=== PATIENT | male | born 1970 | race Caucasian/White ===

== ENCOUNTER → 2019-05-17 13:20 | Outpatient (CLI) | payer MEDICARE, SELFPAY ==
[2019-05-17 14:33] LABS: EXAGEN MAILED SPECIMEN
[2019-05-17 16:18] LABS: Absolute Lymphocyte Count 1.45 X10^3/uL (0.83-4.51); Absolute Neutrophil Count 6.1 X10^3/uL (2.0-7.7); Basophil# 0.02 X10^3/uL; Basophil% 0.2 % (0-1); Eosinophil# 0.23 X10^3/uL; Eosinophils% 2.7 % (0-5); Hematocrit 47.4 % (40-54); Hemoglobin 16.8 g/dL (13.0-16.5); Lymphocyte # 1.45 X10^3/ul (4.0); Lymphocyte % 16.9 % (19-41); Mean Corp Hgb Conc 35.4 g/dL (32-36); Mean Corpuscular Hgb 29.1 pg (27.0-32.0); Mean Corpuscular Volume 82.1 fL (80-94); Mean Platelet Vol. 10.5 fl (6.2-12.0); Monocyte# 0.78 X10^3/uL; Monocyte% 9.1 % (0-10); NRBC Flagged by Analyzer 0 % (0-5); Neutrophil # 6.07 X10^3/uL (2.7-7.7); Neutrophil % 70.5 % (47-70); Platelet Count 287 K/mm3 (150-450); RBC Distribution Width CV 13.2 % (11.6-14.6); RBC Distribution Width SD 39.1 fl (35.1-43.9); Red Blood Count 5.77 M/mm3 (4.6-6.2); White Blood Count 8.6 K/mm3 (4.4-11.0)
[2019-05-17 16:23] LABS: Erythrocyte Sedimentation Rate < 1 mm/hr (0-20)
[2019-05-17 16:30] LABS: ALB/GLOB Ratio 1.3 RATIO (0.9-2.4); AST(SGOT) 20 U/L (15-37); Alanine Aminotransfer ALT/SGPT 41 U/L (16-61); Albumin, Serum 4.4 g/dL (3.2-5.0); Alkaline Phosphatase 97 U/L (45-117); Anion Gap 5 (5-15); BUN 15 mg/dL (7-18); CRP < 2.90 mg/L (0.0-3.0); Calcium,Total 8.9 mg/dL (8.5-10.1); Chloride 103 mmol/L (98-107); EST Glomerular Filtration Rate 84 mL/min (>60); Est Glom Filt Rate - Afr Amer 102 mL/min (>60); Globulin 3.5 g/dL (2.2-4.2); Glucose 78 mg/dL (74-106); Protein, Total 7.9 g/dL (6.4-8.2); Protein, Urine (Random) 13.4 mg/dL (<11.9); Protein:Creat Ratio 74 mg/g CRE (0-200); Sodium Level 138 mmol/L (136-145)
[2019-05-17 16:59] LABS: Color, Urine Yellow (Yellow); Glucose, Dipstick Normal (Normal); Ketone-Dipstick 5 mg/dl (Negative); Leukocyte Esterase-Dipstick Negative /ul (Negative); Nitrite-Dipstick Negative (Negative); Occult Blood-Urine Negative /ul (Negative); Protein-Dipstick Negative (Negative); Urine Bilirubin Dipstick Negative (Negative); Urine Clarity Clear (Clear); Urine Urobilinogen Normal (Normal)
[2019-05-18 08:19] LABS: Hepatitis B Surface Antibody Non-Reactive; Hepatitis B Surface Antigen Non-Reactive (Nonreactive); Hepatitis C Antibody Non-Reactive (Nonreactive)
[2019-05-19 13:40] LABS: Hepatitis B Core AB IgM Negative (Negative)
== END ==
PROVIDERS: Family Provider Family Medicine; PCP Family Medicine; Referring Provider Internal Medicine Rheumatology; Visit Provider Internal Medicine Rheumatology
DX: M06.4 Inflammatory polyarthropathy (principal); K90.0 Celiac disease; K58.9 Irritable bowel syndrome, unspecified; K21.9 Gastro-esophageal reflux disease without esophagitis; I34.1 Nonrheumatic mitral (valve) prolapse; F41.9 Anxiety disorder, unspecified; F32.9 Major depressive disorder, single episode, unspecified; R76.8 Other specified abnormal immunological findings in serum
CPT/HCPCS: 36415; 80053; 81002; 82570; 84156; 85025; 85652; 86140; 86705; 86706; 86803; 87340

== ENCOUNTER → 2020-01-30 10:31 | Outpatient (CLI) | payer MEDICARE, SELFPAY ==
[2020-01-29 14:57] VITALS: BMI 38.3
--- NOTE | 2020-01-29 16:00 | HEM_PTH ---
PATIENT: DARRELL JONES LOC: [facility] U#:[id number] AGE/SX: 55/M ROOM: RE01/30/[address]: Dr. Teddy Su MD : 1970 BED: DIS: SPEC #: [id number] RECD: 01/30/20 09:53 STATUS: TIMOTHY REAlena #: [id number] CELESTINO: 01/29/20 16:[address]: Teddy Su DEPT: SURGICAL PATHOLOGY RECD BY: Nelson Jasso ENTERED: 01/30/20 10:47 SP TYPE: HEMORRHOID OTHR DR: Dr. Ranjit Kwok MD Tissues: HEMORRHOIDS Procedures: Surgery Specimen Level IV HEADER OPERATION: Evacuation thrombosed hemorrhoid PRE-OP DIAGNOSIS: Thrombosed hemorrhoid TISSUE SUBMITTED: Hemorrhoid tissue MICROSCOPIC DIAGNOSIS Hemorrhoid tissue: A piece of squamous mucosa with dilated and congested blood vessels consistent with hemorrhoid with organizing thrombus formation. SJ:rey 01/31/20 MICROSCOPIC DESCRIPTION Slides are reviewed. GROSS DESCRIPTION Received in fixative is one container labeled with the patient's name and designated hemorrhoid. The specimen consists of a piece of congested mucosal tissue measuring 1.7 x 1.5 x 1 cm. The specimen is bisected and reveals congested and hemorrhagic cut surfaces. The entire specimen is submitted in one cassette. / SPRING:rey 01/30/20 TC:5 CPT: 83246
== END ==
PROVIDERS: PCP Family Medicine; Referring Provider Surgery; Visit Provider Surgery
DX: K64.5 Perianal venous thrombosis (principal)
CPT/HCPCS: 88304; 88305

== ENCOUNTER 2021-07-29 13:47 | Outpatient (CLI) | payer MEDICARE, SELFPAY ==
--- NOTE | 2021-07-29 13:52 | VDLE_ITS ---
Reason For Study: Pain RIGHT LEFT CFV is compressible, spontaneous, phasic, GSV is normal. competent and demonstrates normal CFV is compressible, spontaneous, phasic, augmentation. competent, and demonstrates normal Procedure augmentation. This is a venous duplex using B-mode, color FV is compressible, spontaneous, phasic, flow and spectral Doppler. competent and demonstrates normal Exam performed in department. augmentation. A preliminary report was called and/or faxed POP V is compressible, spontaneous, phasic, to Wayt. competent and demonstrates normal augmentation. T/P Trunk is compressible. PTV is compressible. LT PerV is compressible. VL/Venous Duplex US, Unilateral Interpretation Summary There is no evidence of left lower extremity deep vein thrombosis. Left great s aphenous vein appears patent and compressible segmentally. Normal flow patterns right common femoral vein Ordering Physician: Tin Keenan Referring Physician: Steve Kwok Performed By: Geri Banda RVT
== END 2021-07-29 23:59 | disposition home or self-care (01) ==
LOC: CVS 13:50
PROVIDERS: PCP Family Medicine; Referring Provider Physician Assistant; Visit Provider Physician Assistant
DX: M79.662 Pain in left lower leg (principal)
CPT/HCPCS: 93971

== ENCOUNTER 2023-10-06 11:27 | Day surgery (SDC) | payer MEDICARE, MEDICAID, SELFPAY ==
[2023-10-06] VITALS (16 sets, daily range): BP systolic 98–120; BP diastolic 33–95; PULSE 72–92; RESP 15–18; TEMP 36.2–36.8; O2SAT 96–100; BMI 35.8
--- NOTE | 2023-10-06 | PROS_PTH ---
PATIENT: DARRELL JONES LOC: [facility] [place] U#:[id number] AGE/SX: 53/M ROOM: RE10/06/[address]: Dr. Lennox Estrada MD : 1970 BED: DIS: 10/07/2023 SPEC #: [id number] RECD: 10/06/23 13:28 STATUS: TIMOTHY REAlena #: [id number] CELESTINO: 10/06/23 00:[address]: Lennox Estrada DEPT: SURGICAL PATHOLOGY RECD BY: Deni Carlos ENTERED: 10/07/23 13:29 SP TYPE: TURP OTHR DR: Dr. Ranjit Kwok MD Tissues: Prostate, NOS Procedures: Surgery Specimen Level IV HEADER OPERATION: Transurethral resection of prostate with Olympus PRE-OP DIAGNOSIS: Transurethral obstruction of the prostate for BPH with obstruction TISSUE SUBMITTED: Prostate tissue MICROSCOPIC DIAGNOSIS Prostate tissue, transurethral resection: Benign prostatic hyperplasia, glandular and stromal type. SPRING/ 10/08/2023 MICROSCOPIC DESCRIPTION Slides are reviewed. GROSS DESCRIPTION Received is one container labeled with the patient's name and designated prostate tissue. The specimen consists of multiple irregular fragments of pink-eason, rubbery, soft tissue that in aggregate weigh 3.6 gm and measure in aggregate 3.0 x 3.0 x 1.0 cm. The entire specimen is submitted in three cassettes. SPRING/ 10/07/23 TC:5 CPT: 29876
[2023-10-06] MEDS: Lactated Ringers 1,000 ML 15 ML IV (12:24)
--- NOTE | 2023-10-06 13:30 | PCM.HP.STD ---
HPI - General HPI Narrative DARRELL JONES, is a 53 M who presents for a transurethral obstruction of the prostate for BPH with obstruction. PFSH Medical History (Updated 09/22/23 @ 12:00 by Trinity Unger) Ambulates with cane Arthritis Back pain Bladder disease Depression with anxiety Dietary restriction Difficulty swallowing Heartburn History of pain when walking History of stress test Non-smoker Thrombosed external hemorrhoid Wears glasses Home Medications clonazepam 0.5 mg tablet (Klonopin) 0.5 mg PO TID 01/29/20 [History Last Taken 10/06/23] duloxetine 60 mg capsule,delayed release (Cymbalta) 30 mg PO BID 01/29/20 [History Last Taken 10/06/23] meloxicam 7.5 mg tablet 7.5 mg PO BID PRN PRN pain 07/23/21 [History Last Taken 10/04/23] doxepin 25 mg capsule 25 mg PO QHS PRN PRN insomnia 09/22/23 [History Last Taken 10/04/23] pregabalin 50 mg capsule 50 mg PO TID PRN PRN pain 09/22/23 [History Last Taken 10/04/23] tizanidine 2 mg tablet 2 mg PO BID PRN PRN muscle spasm 09/22/23 [History Last Taken 10/03/23] Allergy/AdvReac Type Severity Reaction Status Date / Time Sulfa (Sulfonamide Allergy Intermediate Rash Verified 10/06/23 11:59 Antibiotics) Family History Father Asthma Arthritis Mother Arthritis Surgical History (Updated 09/22/23 @ 12:00 by Trinity Unger) History of tonsillectomy Hx of arthroscopy of shoulder Hx of colonoscopy Social History Smoking Status: Never smoker alcohol intake: never substance use type: does not use Vital Signs Vital Signs Vital Signs: 10/06/23 12:02 10/06/23 12:02 Temperature 98.3 F Temperature Source Temporal Pulse Rate 92 Respiratory Rate 18 Respiratory Pattern Normal Blood Pressure 118/95 H Blood Pressure Mean 102 Blood Pressure Source Monitor Blood Pressure Position Semi-Fowlers Blood Pressure Location Right Arm Pulse Ox 99 Oxygen Delivery Method Room Air Weight Weight: 116.4 kg Body Mass Index (BMI) 35.8
--- NOTE | 2023-10-06 13:31 | DCINST_ITS ---
Discharge Instructions Diet Discharge Diet: No restrictions Activity Discharge Activity: Return to Normal Activity and May Not Drive (while taking narcotic pain medications.) Dressing / Incision Call your doctor if you observe: Fever of 101 or Higher Follow Up Care Please Follow Up With: Lennox Estrada MD When: Call [phone] for an appointment Test Results: Test results from this visit will be discussed in further detail at your follow- up appointment, if applicable. Discharge Plan Admission Attending Provider: Lennox Estrada Primary Care Provider: Ranjit Kwok Discharge Orders/Prescriptions Prescriptions: No Action duloxetine [Cymbalta] 60 mg capsule,delayed release(DR/EC) 30 mg PO BID clonazepam [Klonopin] 0.5 mg tablet 0.5 mg PO TID meloxicam 7.5 mg tablet 7.5 mg PO BID PRN PRN (Reason: pain) Patient Comments: TAKE 1 TABLET TWICE DAILY NEEDED WITH FOOD. DO NOT use ibuprofen along with this medication. doxepin 25 mg capsule 25 mg PO QHS PRN PRN (Reason: insomnia) tizanidine 2 mg tablet 2 mg PO BID PRN PRN (Reason: muscle spasm) pregabalin 50 mg capsule 50 mg PO TID PRN PRN (Reason: pain) Referrals / Follow Up: Ranjit Kwok MD [Primary Care Provider] - Disposition Disposition (needs filled in before D/C Order can be placed): Home, Self Care
[2023-10-06] MEDS: Cefazolin 2 GM in 0.9% Normal Saline (100mL Bag) 100 ML IV (13:39)
--- NOTE | 2023-10-06 14:29 | OP.PCM_ITS ---
Report of Operation Date of Procedure: 10/06/23 Pre-Operative Diagnosis: BPH with obstruction Post-Operative Diagnosis: Same Surgery/Procedure Performed:: Transurethral section of prostate Description of Surgical Findings:: In the preoperative setting I discussed with the patient how the surgery would be done with expect afterwards. We discussed how a prostate resection is done and we discussed the risk of the surgery including, bleeding, infection, retrograde ejaculation, changes with ejaculation or intercourse,. We discussed the possibility that the resection of the prostate may not alleviate his urinary symptoms. We discussed the small risk of developing scar tissue along the urethral channel and strictures. We also discussed the chance of the prostate could grow back and he may need further surgery or treatment in the future for prostate problems. Patient was taken back to the operating room, timeout procedure was performed, he was identified and marked and placed on the operating room table. He underwent general anesthesia. He was placed in dorsolithotomy position. Penis and testicles were prepped and draped in usual sterile fashion. Went into the bladder using the visual obturator with a resectoscope. Once inside the bladder identified the right and left ureteral orifice. I then identified the prostate and the anatomy of the prostate. I marked out the area of the sphincter and the verumontanum was identified. I then proceeded with the prostate resection first resected the median lobe. And then resected the right lobe of the prostate. Then to resect the left lobe of the prostate. I then resected the apical tissue of the prostate. This was a complete resection of all obstructive tissue to improve voiding and relieve obstruction. I then made sure that there was no injury to the sphincter or the verumontanum was still intact. At the end of the resection all the chips were Ellik out of the bladder. I then identified the left and right ureteral orifice and these were confirmed to be in good position and effluxing and not injured. The resectoscope was removed, a 22 Vietnamese catheter was placed into the bladder on continuous irrigation. And the urine was fairly light pink color and draining normally. He was taken back to the PACU in good condition. Surgeon: Lennox Estrada Type of Anesthesia: General Estimated Blood Loss (mL): 25 Admit VTE Documentation VTE Present on Admission: No VTE Mechan Device Prophylaxis: SCD's VTE Pharm Prophylaxis ordered?: No
[2023-10-06] MEDS: HYDROcodone Bitartrate/Apap 5/325 Tablet PO ×2 (16:33→22:43)
[2023-10-06] MEDS: Ketorolac 15 MG/ML Vial IV ×3 (16:33→22:42)
[2023-10-06] MEDS: Lactated Ringers 1,000 ML 125 ML IV (17:45)
[2023-10-06] MEDS: clonazePAM 0.5 MG Tablet PO (21:58)
[2023-10-06] MEDS: DULoxetine Hcl 30 MG Capsule PO (21:59)
[2023-10-06] MEDS: Cefazolin 1 GM/50 ML BAG IV (21:59)
[2023-10-07] VITALS (8 sets, daily range): BP systolic 93–152; BP diastolic 57–85; PULSE 60–72; RESP 15–18; TEMP 36.6–37.2; O2SAT 95–100
[2023-10-07] MEDS: Lactated Ringers 1,000 ML 125 ML IV (02:00)
[2023-10-07] MEDS: Cefazolin 1 GM/50 ML BAG IV (05:22)
[2023-10-07] MEDS: clonazePAM 0.5 MG Tablet PO (06:36)
--- NOTE | 2023-10-07 07:40 | PCM.PN.GU ---
Subjective Subjective s/p TURP home after voids Objective Data Objective Data Vital Signs: Vital Signs Temp Pulse Resp BP Pulse Ox O2 Del Method 98.1 F 61 15 93/57 L 97 Room Air 10/07/23 05:16 10/07/23 05:16 10/07/23 05:16 10/07/23 05:16 10/07/23 05:16 10/07/23 05:16 Oxygen Delivery Method Room Air Weight: 116.4 kg Body Mass Index (BMI) 35.8 Intake & Output: Intake and Output for Last 24 Hours 10/05/23 10/06/23 10/07/23 23:59 23:59 23:59 Intake Total 1809 / 1809 1000 / 1000 Output Total 925 / 925 1000 / 1000 Balance 884 / 884 0 / 0
[2023-10-07] MEDS: HYDROcodone Bitartrate/Apap 5/325 Tablet PO (08:22)
[2023-10-07] MEDS: DULoxetine Hcl 30 MG Capsule PO (08:23)
== END 2023-10-07 11:40 | disposition home or self-care (01) ==
LOC: SDC 11:29 → AC 12:34 → MS3 10-07 08:09
PROVIDERS: PCP Family Medicine; Referring Provider Urology; Visit Provider Urology
PROC: (CPT 52601; principal; 2023-10-06 14:10)
DX: N40.1 Benign prostatic hyperplasia with lower urinary tract symptoms (principal); N13.8 Other obstructive and reflux uropathy; F32.A Depression, unspecified; F41.9 Anxiety disorder, unspecified; Z79.899 Other long term (current) drug therapy
CPT/HCPCS: 52601; 00914; 88305; J7120; J2405

== ENCOUNTER → 2024-02-24 | Outpatient (CLI) | payer MEDICARE, MEDICAID, SELFPAY ==
[2024-02-24 13:01] LABS: PSA,Total- Diagnostic 1.81 ng/mL (0.0-4.0)
== END | disposition home or self-care (01) ==
PROVIDERS: PCP Family Medicine; Referring Provider Urology; Visit Provider Urology
DX: R97.20 Elevated prostate specific antigen [PSA] (principal)
CPT/HCPCS: 36415; 84153

== ENCOUNTER → 2024-10-26 | Outpatient (CLI) | payer MEDICARE, SELFPAY ==
[2024-10-26 14:36] LABS: PSA,Total - Annual Screen 3.44 ng/mL (0.02-4.00)
== END | disposition home or self-care (01) ==
PROVIDERS: PCP Family Medicine; Referring Provider Urology; Visit Provider Urology
DX: Z12.5 Encounter for screening for malignant neoplasm of prostate (principal)
CPT/HCPCS: 36415; 84153; G0103